=== PATIENT | male | born 1995 | race Caucasian/White ===

== ENCOUNTER 2020-07-29 21:45 | Emergency (ER) | payer SELFPAY ==
[2020-07-29 22:06] VITALS: BP 131/88; PULSE 74; RESP 18; TEMP 36.6; O2SAT 99
--- NOTE | 2020-07-29 22:14 | ED.PSYCH ---
HPI - Psych General Chief Complaint: Psychiatric Symptoms Stated Complaint: suicidal Time Seen by Provider: 07/29/20 22:14 Source: patient Mode of arrival: ambulatory Limitations: no limitations History of Present Illness HPI Narrative: 25-year-old man comes in today with suicidal ideation. Patient states that he feels depressed and wanting to end it all but has not elucidated any specific plan. Patient states he has been feeling depressed for a long time and is having family issues. He denies prior hospitalizations for psych issues. He states that until just recently he drank alcohol every day. He states that he also smokes marijuana. He states he took Risperdal in the past. He denies access to firearms.Patient is worried about his [employer]eda [employer] safety but cannot give a specific threat to their well being. MD complaint: suicidal ideation Onset (ago): month(s) Duration: intermittent History of same: No Relieving factors: none Exacerbating factors: none Context: recent alcohol abuse and significant life stressor (Pt is vague re specific stressors other than having family issues.) Associated psychiatric symptoms: depression and suicidal ideation Associated symptoms: denies other symptoms If self harm: admits thoughts of self harm Related Data Home Medications Medication Instructions Recorded Confirmed No Home Medications 07/29/20 07/29/20 Allergies Allergy/AdvReac Type Severity Reaction Status Date / Time No Known Allergies Allergy Verified 07/29/20 22:05 Review of Systems Review of Systems: All systems reviewed & are unremarkable except as noted in HPI and below Constitutional: Constitutional: Denies chills and Denies fever(s) Eyes: Eyes: Denies change in vision and Denies photophobia ENT: Denies nasal congestion and Denies sore throat Cardiovascular: Cardiovascular: Denies chest pain and Denies radiating jaw, neck or arm pain Respiratory: Respiratory: Denies cough and Denies dyspnea Gastrointestinal: Gastrointestinal: Denies abdominal pain, Denies diarrhea, Denies nausea and Denies vomiting Genitourinary: Genitourinary: Denies dysuria and Denies urinary frequency Musculoskeletal: Musculoskeletal: Denies arthralgias and Denies joint swelling Integumentary/Breasts: Skin/Breast: Denies pruritus, Denies erythema and Denies rash Neurologic: Denies vertigo, Denies dizziness and Denies syncope Hematologic/Lymphatic: Hematologic/Lymphatic: Denies easy bleeding and Denies easy bruising Allergic/Immunologic: Allergic/Immunologic: Denies throat swelling and Denies tongue swelling PMFSH Social History Social History (Updated 07/29/20 @ 22:22 by Melchor Banerjee MD) Smoking status: Never smoker Alcohol intake: current Substance use type: marijuana Exam Const: General: healthy appearing, no acute distress and alert Nutritional Appearance: well nourished Orientation/consciousness: patient oriented x3 HENMT: Head: normal to inspection Ears: external ears normal, TM's normal bilaterally and EAC's normal General nose exam: Normal nares present Face and sinus: normal facial exam Mouth: Yes moist mucous membranes abnormal Teeth and gingiva: abnormal tooth and associated gingiva Eyes: Conjunctivae: conjunctivae normal Pupils: Equal, round and reactive pupils present EOM: EOMs intact bilaterally Neck: Neck: normal visual inspection and no lymphadenopathy Resp: Effort & Inspection: normal respiratory effort and not labored Auscultation: clear to auscultation bilaterally, no rales, no rhonchi and no wheezes Cardio: Rate: regular rate Rhythm: regular rhythm Heart sounds: no murmurs Skin: General skin exam: normal color, no jaundice and no pallor Rashes: no rashes Neuro: General: patient oriented x3, moves all extremities, no focal motor deficits and CN's II-XI intact bilaterally Speech: normal speech Gait exam (Neuro): Normal gait present Extrem: General: normal to inspection and no clubbing
[2020-07-29 22:37] LABS: Basophils Absolute Auto 0.04 K/mm3 (0.00-0.10); Basophils Percent Auto 0.5 % (0.0-1.0); Eosinophils Absolute Auto 0.03 K/mm3 (0.02-0.50); Eosinophils Percent Auto 0.4 % (1.0-6.0); Hematocrit 42.5 % (40.0-54.0); Hemoglobin 14.8 g/dL (14.0-18.0); Immature Granulocyte Absolute 0.01 K/mm3 (0.00-0.00); Immature Granulocyte Percent A 0.1 % (0.0-0.0); Lymphocytes Absolute Auto 1.39 K/mm3 (1.10-4.50); Lymphocytes Percent Auto 18.7 % (18.0-42.0); Mean Corpuscular HGB Conc 34.8 g/dL (32.0-36.0); Mean Corpuscular Hemoglobin 32.2 pg (27.0-31.0); Mean Corpuscular Volume 92.4 fL (78.0-102.0); Mean Platelet Volume 10.8 fl (8.7-11.0); Monocytes Absolute Auto 0.71 K/mm3 (0.10-0.90); Monocytes Percent Auto 9.6 % (2.0-11.0); Neutrophils Absolute Auto 5.3 K/mm3 (1.7-7.2); Neutrophils Percent Auto 70.7 % (50.0-70.0); Platelet Count Result 219 K/mm3 (150-420); Red Cell Distribution Width 12.2 % (11.6-14.4); White Blood Count 7.4 K/mm3 (4.8-10.8)
[2020-07-29 22:40] LABS: Add Urine Microscopic? YES; Appearance Urine Clear (Clear); Bilirubin Urine Negative (Negative); Blood Urine Negative (Negative); Color Urine Yellow (Yellow); Glucose Urine UA Negative (Negative); Ketones Urine 1+ (Negative); Leukocyte Esterase Ur Negative LEU/UL (Negative); Nitrate Urine Negative (Negative); Protein Urine Negative (Negative)
[2020-07-29 22:47] LABS: Amphetamine Screen Urine Negative (Negative); Barbiturate Screen Urine Negative (Negative); Benzodiazepines Screen Urine Negative (Negative); Cannabinoid Screen Urine Positive (Negative); Cocaine Screen Urine Negative (Negative); Methadone Screen Urine Negative (Negative); Opiate Screen Urine Negative (Negative); Phencyclidine Screen Urine Negative (Negative)
[2020-07-29 22:48] LABS: Bacteria Urine 1+ /hpf; Mucus Urine Few /lpf; RBC Urine 0-2 /hpf (0-2); Squamous Epithelial Cell Urine None seen /hpf (Few); WBC Urine 0-3 /hpf (0-3)
[2020-07-29 23:01] LABS: Alanine Aminotransferase 15 U/L (16-63); Albumin Level 4.3 g/dL (3.4-5.0); Alkaline Phosphatase 64 U/L (46-116); Aspartate Amino Transferase 15 U/L (15-37); Bilirubin,Total 0.6 mg/dL (0.00-1.00); Blood Urea Nitrogen 8 mg/dL (7-18); Carbon Dioxide 29 mmol/L (21-32); Estimated CRCL calculation 75 ml/min; Estimated Glomerular Filt Rate > 60; Ethanol 4 mg/dL (0-6); Glucose 115 mg/dL (70-99); Salicylate 3.4 mg/dL (2.8-20.0); Total Protein 7.3 g/dL (6.4-8.2)
[2020-07-29 23:07] LABS: Anion Gap 9 mmol/L (8-16); Calcium 9.1 mg/dL (8.5-10.1); Chloride 101 mmol/L (98-108); Osmolality Calculated 287 mOsm/kg (285-295); Potassium 2.9 mmol/L (3.5-5.1); Sodium 139 mmol/L (136-145)
[2020-07-29 23:08] LABS: Acetaminophen < 2 ug/mL (10-30)
[2020-07-29] MEDS: POTASSIUM CHLORIDE 20 MEQ TABLET 40 MEQ PO (23:16)
[2020-07-29 23:50] LABS: SARS-CoV-2 RNA PCR Negative (Negative)
--- NOTE | 2020-07-30 00:12 | PC.NURSE ---
Pt. has sitter at bedside, pt. is asking every 10-15 min. to speak c his girlfriend because he is worried about them. Pt. reassured we have updated his g-friend and she is aware of POC. Pt.; is restless and repeats he just doesn't know what to do anymore . Pt reassured and informed on POC to see and speak c mental health counselor who will be here soon for evaluation.
--- NOTE | 2020-07-30 00:46 | PC.NURSE ---
Pt. is up in room, pacing and more agitated. Pt. speaking lakisha Urbano from mental health and keeps repeating that he feels his kids are in danger. ERP contacted for orders. Pt. also keeps trying to use wall phone to contact g-friend p being told not to use phone until p evaluation.
[2020-07-30] MEDS: LORazepam (*CRX) 0.5 MG TABLET PO (00:53)
--- NOTE | 2020-07-30 01:09 | PC.NURSE ---
Pt. is now again pacing room and keeps stating he is worried about his children and want police sent to the house to check on everyone. Sundeep, mental health counselor trying to speak c and reassure pt. that he has spoken to everyone and they are doing ok. Phone taken from pt. room so that he can't keep trying to dial outside.
--- NOTE | 2020-07-30 08:18 | PC.NURSE ---
Pt resting comfortably on stretcher, lights dimmed.
--- NOTE | 2020-07-30 10:55 | PC.NURSE ---
pt continues to sleep. resting comfortably on stretcher, no change in pt status.
[2020-07-30 12:23] VITALS: BP 118/77; PULSE 84; RESP 16; O2SAT 99
--- NOTE | 2020-07-30 12:23 | PC.NURSE ---
Pt awakens easily, vitals obtained, food offered. pt agreeable to go to mental health facility for inpatient treatment.
--- NOTE | 2020-07-30 12:26 | PC.NURSE ---
chart faxed to [facility].
[2020-07-30 13:33] LABS: Potassium 4.2 mmol/L (3.5-5.1)
--- NOTE | 2020-07-31 01:03 | ED.PSYCH ---
HPI - Psych General Chief Complaint: Psychiatric Symptoms Stated Complaint: suicidal Time Seen by Provider: 07/30/20 07:45 Source: patient Mode of arrival: ambulatory Limitations: no limitations History of Present Illness HPI Narrative: This young man came in with complaints of suicidal ideation. He states he has felt depressed, and it appears he was thinking of killing himself. He has expressed multiple times he is concerned for the safety of his family and his girlfriend. He gives no specific information regarding this. He states he has had difficulty with depression for quite some time, has seen multiple counselors, and mental health professionals of different training. He has been on multiple medications for his depression in the past. He states recent events have precipitated his recent thinking about and aggravated his depression. He has not been on any medications at home, or been able to do anything he feels that has been effective in opposing depression. Strangely, he does not see coming to the hospital to seek help as being proactive. no other associated signs/symptoms MD complaint: suicidal ideation and feels depressed Onset (ago): day(s) Duration: intermittent Relieving factors: none Exacerbating factors: none Context: not taking psychiatric medications Associated psychiatric symptoms: depression, suicidal ideation and other (recent exposure to friend who committed suicide) Associated symptoms: denies other symptoms Details of plan: he gives no specific plan to me Related Data Home Medications Medication Instructions Recorded Confirmed No Home Medications 07/29/20 07/29/20 Allergies Allergy/AdvReac Type Severity Reaction Status Date / Time No Known Allergies Allergy Verified 07/29/20 22:05 Review of Systems Constitutional: Constitutional: Reports no additional constitutional complaints Eyes: Eyes: Reports no additional eye complaints ENT: Reports system reviewed and no additional complaints, except as documented Cardiovascular: Cardiovascular: Reports no additional cardiovascular complaints Respiratory: Respiratory: Reports no additional respiratory complaints Gastrointestinal: Gastrointestinal: Reports no additional gastrointestinal complaints Genitourinary: Genitourinary: Reports no additional male genitourinary complaints Musculoskeletal: Musculoskeletal: Reports no additional musculoskeletal complaints Integumentary/Breasts: Skin/Breast: Reports system reviewed and no additional complaints, except as docu Neurologic: Reports system reviewed and no additional complaints, except as documented Psychiatric: Psychiatric: Reports as per HPI and Reports anxiety Endocrine: Endocrine: Reports no additional endocrine complaints Hematologic/Lymphatic: Hematologic/Lymphatic: Reports no additional hematologic/lymphatic complaints Allergic/Immunologic: Allergic/Immunologic: Reports no additional allergic/immunologic complaints PMF Past Medical History Medical History (Updated 07/31/20 @ 01:29 by Renato Greenberg MD) Depression Surgical History Surgical History (Updated 07/31/20 @ 01:30 by Renato Greenberg MD) No significant past surgical history Family History Family History (Updated 07/31/20 @ 01:33 by Renato Greenberg MD) Father Depression Social History Social History Smoking status: Never smoker Alcohol intake: current Substance use type: marijuana Exam Const: General: no acute distress and alert Orientation/consciousness: patient oriented x3 HENMT: Head: normal to inspection Ears: external ears normal General nose exam: Normal external nose present Mouth: Yes Normal oral and palatal mucosa present Eyes: Conjunctivae: conjunctivae normal Neck: Neck: normal visual inspection Chest: Chest palpation & inspection: normal inspection of the chest Resp: Effort & Inspection: normal respiratory effort Auscult
== END 2020-07-30 15:28 ==
PROVIDERS: Emergency Medicine; Emergency Provider Emergency Medicine
DX: R45.851 Suicidal ideations (principal); F22 Delusional disorders; Z20.822 Contact with and (suspected) exposure to COVID-19
CPT/HCPCS: 36415; 80053; 80307; 81001; 84132; 84443; 85025; 99285; A9270; C9803; U0003; U0005